=== PATIENT | female | born 1935 | race Caucasian/White ===

== ENCOUNTER 2024-03-28 09:51 | Emergency (ER) | payer OTHER, SELFPAY ==
[2024-03-28] VITALS (7 sets, daily range): BP systolic 125–149; BP diastolic 57–85; BMI 31.5
--- NOTE | 2024-03-28 10:41 | ED.GENMED ---
History of Present Illness
General
Chief Complaint: Dizziness
Source: patient
Exam Limitations: none
Time Seen by Provider: 03/28/24 10:12
History of Present Illness
History of Present Illness:
88-year-old female with history of hypertension on atenolol presents with ongoing nausea over the past week with associated intermittent chest discomfort. She also notes a lightheaded sensation this morning when she bent over to brush her teeth.
There is no abdominal pain. No vomiting. No diarrhea. She denies headache double vision blurry vision. She denies any fevers. Pain is not with deep breathing. Pain is not made worse with eating. She notes it is an aching sensation in the
center of her chest that does not radiate to the back. She denies arm numbness weakness or pain.
Past History
Past History
ED Past Medical History: HTN and Other (Shingles)
ED Past Surgical History: Bowel resection (for Diverticulitis), Gynecological and Orthopedic (R hip replacement)
Social History
Tobacco: Non-smoker
Alcohol: None
Drug: None
Personal:
Living: with family
Employment: Retired
Family History
Family History: Negative Diabetes, Hypertension or CAD
Phy Exam
Physical Exam
Physical Exam:
General: Well-appearing female no acute respiratory distress
HEENT: Normocephalic atraumatic
Heart: Regular rate and rhythm no murmurs
Lungs: Clear no wheeze
Abdomen is soft nontender nondistended no guarding rebound normal bowel sounds
Extremities: No cyanosis or edema
Course
Orders/Labs/Results
Orders:
Orders
03/28/24 10:33
Cardiac Monitoring- Treatment ONCE
03/28/24 10:34
CR Chest - 2 Views Urgent
Comment:
Reason For Exam: chest pain
03/28/24 10:40
Electrocardiogram (*1) Urgent
Reason for Study: Vertigo / Dizzy
EKG- Treatment ONCE
03/28/24 10:54
0.9% Sodium Chloride 1000 ml [Nss] 1,000 ml IV BOLUS
03/28/24 11:11
Complete Blood Count/With Diff Urgent
Comprehensive Metabolic Panel Urgent
Lipase Urgent
Troponin I Urgent
03/28/24 13:19
Urinalysis Reflex To Culture Urgent
Abnormal Lab Results
03/28/24
11:11
MCHC 32.8 L g/dL
(33.0-37.0)
Absolute Monos (auto) 0.8 H 10^3/uL
(0.1-0.6)
Lymphocytes % 13.9 L %
(20.5-51.1)
BUN 34 H mg/dl
(7-17)
Glucose 101 H mg/dl
(70-99)
03/28/24 11:11
03/28/24 11:11
Vital Signs
Initial and Last Documented VS:
Initial Vital Signs
Temp Pulse Resp BP Pulse Ox
99.3 F 70 18 149/85 93
03/28/24 10:05 03/28/24 10:05 03/28/24 10:05 03/28/24 10:05 03/28/24 10:05
Last Documented Vital Signs
Temp Pulse Resp BP Pulse Ox
99.3 F 62 10 125/57 95
03/28/24 10:05 03/28/24 11:30 03/28/24 11:30 03/28/24 11:11 03/28/24 11:30
MDM/Problems Addressed
Differential Diagnosis Includes:
Patient with nausea and chest discomfort intermittent over the past week. She was triaged as dizziness however not describe a spinning sensation she describes more so a lightheaded sensation at times. Consider ACS, GERD. Do not suspect PE. No
pain down the arms. Will check chest x-ray. Troponin lipase pending. EKG and patient will be placed on cardiac nurse practitioner
*Critical Care Note
Total Time (30-74mins, 75-104mins- exclusive of procedures): Not Applicable
Update Note
Update Note:
Patient reevaluated still feeling well asymptomatic no arrhythmias noted on monitor. Cardiac workup negative. She was hydrated. BUN was slightly elevated I suspect underlying volume depletion or dehydration. Stable for discharge
ED Attending Note
-
Portions of this chart may have been created with voice recognition software.� Occasional wrong word or��sound alike� substitutions may have occurred due to the inherent limitations of voice recognition software.
Discharge Plan
Departure
Patient Disposition: Home (Routine Discharge)
Date of Disposition: 03/28/24
Time of Disposition: 13:56
Patient with high blood pressure during this ER visit?: No
Discharge Problem:
Lightheadedness
Instructions: Dizziness
Prescriptions:
No Action
atenolol 50 MG tablet
50 mg PO DAILY
aspirin 325 MG tablet,delayed release (DR/EC)
325 mg PO DAILY Qty: 0 0RF
docusate sodium 100 MG capsule
100 mg PO BID Qty: 0 0RF
tamsulosin 0.4 MG capsule
0.4 mg PO DAILY Qty: 7 0RF
ondansetron 4 MG tablet,disintegrating
4 mg PO TIDPRN PRN (Reason: NAUSEA) Qty: 9 0RF
meloxicam 7.5 MG tablet
7.5 mg PO BID Qty: 14 0RF
lidocaine 1 PATCH adhesive patch,medicated
1 patch topical DAILY Qty: 10 0RF
Rx Instructions:
ON FOR 12 HOURS, OFF FOR 12 HOURS
morphine 15 MG tablet extended release
15 mg PO Q12 Qty: 15 0RF
Referrals:
Bushra Wilder DO [Family Provider] -
Activity Restrictions/Additional Instructions:
Stay hydrated. Return if worse otherwise follow-up with your family doctor. Consider following up with GI if symptoms this was consistent nausea.
Interventions
Interventions:
*Risk Screen - Suicide Last Done: 03/28/24 10:05
*General Assessment Last Done: 03/28/24 10:05
*Neglect/Abuse Screening Last Done: 03/28/24 10:05
Discharge Date and Time
Print Language: GREENLANDIC
[2024-03-28] MEDS: NSS 1000 IV (11:10)
[2024-03-28 11:45] LABS: % Basophils 0.8 % (0-2); % Eosinophils 2.7 % (0-6); % Immature Granulocytes 0.4 % (0-0.5); % Lymphocytes 13.9 % (20.5-51.1); % Monocytes 8.9 % (1.7-9.3); % Neutrophils 73.3 % (42.2-75.2); Absolute Basophils 0.1 10^3/uL (0-0.2); Absolute Eosinophils 0.2 10^3/uL (0-0.7); Absolute Lymphocytes 1.2 10^3/uL (1.2-3.4); Absolute Monocytes 0.8 10^3/uL (0.1-0.6); Absolute Neutrophils 6.5 10^3/uL (1.4-6.5); Hematocrit 43.9 % (37.0-47.0); Hemoglobin 14.4 g/dL (12.0-16.0); Mean Corp Hgb Conc. 32.8 g/dL (33.0-37.0); Mean Corpuscular Hgb 30.1 pg (27.0-31.0); Mean Corpuscular Volume 91.6 fL (81.0-99.0); Nucleated Red Blood Cells % 0 %; Platelet Count 238 10^3/uL (130-400); Red Blood Cell Count 4.79 10^6/uL (4.20-5.40); Red Cell Dist. Width 14.5 % (11.5-14.5); White Blood Cell Count 8.9 10^3/uL (4.8-10.8)
[2024-03-28 11:56] LABS: ALT (SGPT) 15 U/L (0-35); AST (SGOT) 22 U/L (14-36); Albumin 4.1 g/dl (3.5-5.0); Alkaline Phosphatase 96 U/L (38-126); Blood Urea Nitrogen 34 mg/dl (7-17); Calcium 9.5 mg/dl (8.4-10.2); Carbon Dioxide 26 mmol/L (22-30); Chloride 104 mmol/L (98-107); Estimated Creatinine Clearance 45 ml/min; Glucose 101 mg/dl (70-99); Lipase 51 U/L (23-300); Potassium 4.8 mmol/L (3.5-5.1); Sodium 137 mmol/L (135-145); Total Bilirubin 0.8 mg/dl (0.2-1.3); Total Protein 6.6 g/dl (6.3-8.2); eGFR 54.19
[2024-03-28 12:08] LABS: Troponin I < 0.012 ng/ml
[2024-03-28 14:50] LABS: Urine Albumin Negative (Neg - Trace); Urine Bilirubin Negative (Negative); Urine Character Slightly Cloudy (Clear); Urine Color Yellow; Urine Glucose Negative (Negative); Urine Ketone Negative (Negative); Urine Leukocyte 2+ (Negative); Urine Nitrite Positive (Negative); Urine Occult Blood Negative (Negative); Urine Specific Gravity 1.015 (<1.030); Urine Urobilinogen Negative (Neg - 1+)
[2024-03-28 15:12] LABS: Urine Urothelial Cell 0-2 /LPF (FEW)
[2024-03-28 15:13] LABS: Urine Bacteria Many (Negative); Urine Red Blood Cell 0-2 /HPF (0-2)
== END 2024-03-28 14:08 | disposition home or self-care (01) ==
LOC: EMR 09:51
PROVIDERS: Physician Assistant; EMERGENCY PHYSICIAN Student in an Organized Health Care Education/Training Program; FAMILY PHYSICIAN Family Medicine
DX: R42 Dizziness and giddiness (principal); I10 Essential (primary) hypertension; Z96.641 Presence of right artificial hip joint
CPT/HCPCS: 99283; 96360; 71046; 80053; 81003; 81015; 83690; 84484; 85025; 87077; 87086; 87186; 93005

== ENCOUNTER → 2024-06-05 14:13 | Outpatient (REF) | payer MEDICARE, SELFPAY | LOC: RAD 14:13 | PROVIDERS: ATTENDING PHYSICIAN Family Medicine | DX: R10.32 Left lower quadrant pain (principal) | CPT/HCPCS: 74022 ==

== ENCOUNTER → 2024-06-14 12:28 | Outpatient (REF) | payer MEDICARE, SELFPAY | LOC: RAD 12:28 | PROVIDERS: ATTENDING PHYSICIAN Family Medicine | DX: R10.32 Left lower quadrant pain (principal) | CPT/HCPCS: 74177; Q9967 ==